=== PATIENT | male | born 1940 | race Caucasian/White ===

== ENCOUNTER 2016-05-29 09:16 | Emergency (ER) | payer OTHER, BC ==
[~2016-05-29] VITALS: Ht 177.8 cm; Wt 102.6 kg
[2016-05-29 11:42] LABS: ADD MIUA? YES; BILIRUBIN NEGATIVE; BLOOD LARGE; COLOR YELLOW ((YELLOW)); GLUCOSE (STRIP) NEGATIVE; KETONES NEGATIVE; LEUKOCYTES SMALL; NITRITE NEGATIVE; PROTEIN (STRIP) 100; SPECIFIC GRAVITY 1.017 (1.000-1.030)
[2016-05-29 12:09] LABS: BACTERIA NONE SEEN /HPF; EPITHELIAL CELLS NONE SEEN /HPF; MUCUS NONE SEEN /LPF; RED BLOOD CELLS TNTC /HPF (0-5); UCUL ADDED? NO; WHITE BLOOD CELLS RARE /HPF (0-5)
[2016-05-29 12:40] VITALS: BP 140/86
== END 2016-05-29 12:41 | disposition home or self-care (01) ==
LOC: EME 09:16
PROVIDERS: Emergency Medicine
PROC: 0T9B70Z Drainage of Bladder with Drainage Device, Via Natural or Artificial Opening (ICD-10-PCS; principal; 2016-05-29)
DX: R33.9 Retention of urine, unspecified (principal); Z98.890 Other specified postprocedural states; E11.9 Type 2 diabetes mellitus without complications; I10 Essential (primary) hypertension; K21.9 Gastro-esophageal reflux disease without esophagitis
CPT/HCPCS: 81003; 87086; 99281; 99284

== ENCOUNTER → 2017-10-24 | Outpatient (CLI) | payer MEDICARE, BC | END | disposition home or self-care (01) | LOC: CDC 10:32 | DX: Z01.810 Encounter for preprocedural cardiovascular examination (principal); I25.10 Atherosclerotic heart disease of native coronary artery without angina pectoris; E11.9 Type 2 diabetes mellitus without complications; I10 Essential (primary) hypertension; Z95.9 Presence of cardiac and vascular implant and graft, unspecified | CPT/HCPCS: 93000 ==